=== PATIENT | male | born 1950 | race Caucasian/White ===

== ENCOUNTER 2019-04-16 10:37 | Outpatient (CLI) | payer MEDICARE, OTHER ==
--- NOTE | 2019-04-16 14:52 | MRI ---
MRI RIGHT SHOULDER WITHOUT CONTRAST: HISTORY: The patient complains of right shoulder pain with painful range of motion for a couple years. Histor y of right shoulder surgery in 2001. FINDINGS: There is moderate arthrosis of the AC joint. There is evidence of a previous rotator cuff repair. T he repair appears intact. The fibers are thin, and there is a partial undersurface tear involving th e region of the conjoined component of the supraspinatus and infraspinatus tendon, with the undersurf trista or articular site of fibers retracted by as much as 2.8 cm. The subscapularis muscle and tendon are intact. The biceps tendon lies within the bicipital groove. There is tendinosis of the intraarticular portion of the biceps tendon, and there may even be a smal l split tear present. The inferior glenohumeral ligament is intact. I do not appreciate any definitive labral findings. IMPRESSION: 1. The patient is status post rotator cuff repair. Although the repair is intact, some of the fiber s are very thin, with only some minimal residual bursal-sided fibers. In the region of the conjoined tendon, there is retraction of the articular or undersurface fibers by as much as 2.8 cm. 2. Some tendinosis changes of the biceps tendon and possible associated split tear. POS: [facility]
== END 2019-04-16 10:38 | disposition home or self-care (01) ==
LOC: BICMRI 10:37
PROVIDERS: ATTEND Orthopaedic Surgery
DX: M75.41 Impingement syndrome of right shoulder (principal); Z98.890 Other specified postprocedural states

== ENCOUNTER 2019-06-02 14:57 | Emergency (ER) | payer MEDICARE, OTHER ==
[2019-06-02 15:39] LABS: #Lymphocytes 0.3 thou/uL (1.20-3.40); #Monocytes 0.7 thou/uL (0.11-0.59); #Neutrophils 7.4 thou/uL (1.40-6.50); %Basophils 0.3 % (0.0-1.0); %Eosinophils 0.1 % (0.0-10.0); %Lymphocytes 3.8 % (21.0-51.0); %Neutrophils 87.9 % (42.0-75.0); Hemoglobin 12.9 g/dL (14.0-18.0); Mean Corpuscular HGB CONC 34.3 g/dL (32.0-36.0); Mean Corpuscular Hemoglobin 30.7 pg (27.0-31.0); Mean Corpuscular Volume 89.6 fL (78.0-98.0); Mean Platelet Volume 8.7 fL (7.4-10.4); Platelet Count 120 thou/uL (130-400); RBC Distribution Width 13.1 % (11.5-14.5); Red Blood Cell (RBC) Count 4.19 mill/uL (4.70-6.10); White Blood Cell (WBC) Count 8.4 thou/uL (4.8-10.8)
[2019-06-02 15:57] LABS: ALT (SGPT) 18 U/L (8-55); AST (SGOT) 23 U/L (5-34); Albumin 3.8 g/dL (3.4-4.8); Alkaline Phosphatase 52 U/L (40-150); Anion Gap 12 mmol/L (10-20); BUN (Urea Nitrogen) 31 mg/dL (8.4-25.7); Bilirubin, Total 0.6 mg/dL (0.2-1.2); Calc. Creatinine Clearance 0 mL/min (70-130); Calcium 8.2 mg/dL (7.8-10.44); Carbon Dioxide 24 mmol/L (23-31); Chloride 96 mmol/L (98-107); Estimated GFR-MDRD 39; Globulin 2.5 g/dL (2.4-3.5); Glucose 165 mg/dL (80-115); Potassium 3.8 mmol/L (3.5-5.1); Protein, Total 6.3 g/dL (5.8-8.1); Sodium 128 mmol/L (136-145)
[2019-06-02] MEDS ORDERED: Acetaminophen 500 MG TAB ONE (16:19)
--- NOTE | 2019-06-02 16:28 | RAD ---
PORTABLE CHEST ONE VIEW: 06/02/19 at 4:04 p.m. HISTORY: Fever. FINDINGS: Comparison is made with exam of 01/25/19. The heart size is normal. The aorta is tortuous. The lungs are expanded without focal areas of consol idation, pneumothoraces, or pleural effusions. IMPRESSION: No acute process. POS: [facility]
--- NOTE | 2019-06-02 16:49 | CT ---
CT BRAIN WITHOUT CONTRAST: 06/02/19 HISTORY: Altered mental status. FINDINGS: No evidence of infarct, hemorrhage, midline shift, or abnormal extra-axial fluid collections are seen . The ventricular size is appropriate and the basilar cisterns patent. The bony calvarium is intact. The paranasal sinuses and mastoid air cells are well aerated. IMPRESSION: No evidence of acute intracranial process. POS: [facility]
[2019-06-02 18:17] LABS: Bacteria/HPF None Seen HPF (None Seen); Bilirubin Negative (Negative); Blood, Urine Negative (Negative); Clarity Clear (Clear); Glucose, Urine (Dipstick) Normal (Negative); Leukocyte Negative Leu/uL (Negative); Nitrite Negative (Negative); Protein, Urine (Dipstick) 100 mg/dL (Neg-Trace); RBC/HPF 0-3 HPF (0-3); Squamous Epithelial None Seen HPF (0-3); Urobilinogen Normal mg/dL (Less than 2); WBC/HPF 0-3 HPF (0-3)
== END 2019-06-02 18:45 | disposition home or self-care (01) ==
LOC: ERS 14:57
DX: T67.0XXA Heatstroke and sunstroke, initial encounter (principal); E86.0 Dehydration; X30.XXXA Exposure to excessive natural heat, initial encounter
CPT/HCPCS: 36415; 70450; 71045; 80053; 81003; 81015; 84443; 85025; 87040; 87077; 87086; 87149; 93005

== ENCOUNTER 2019-06-03 12:20 | Inpatient (IN) | payer MEDICARE, OTHER ==
[2019-06-03 13:13] LABS: ALT (SGPT) 42 U/L (8-55); AST (SGOT) 55 U/L (5-34); Albumin 3.4 g/dL (3.4-4.8); Alkaline Phosphatase 49 U/L (40-150); Anion Gap 14 mmol/L (10-20); BUN (Urea Nitrogen) 22 mg/dL (8.4-25.7); Bilirubin, Total 0.5 mg/dL (0.2-1.2); CK (CPK) 187 U/L (30-200); Calc. Creatinine Clearance 0 mL/min (70-130); Calcium 7.8 mg/dL (7.8-10.44); Carbon Dioxide 21 mmol/L (23-31); Chloride 98 mmol/L (98-107); Estimated GFR-MDRD 51; Globulin 2.4 g/dL (2.4-3.5); Glucose 126 mg/dL (80-115); Potassium 3.6 mmol/L (3.5-5.1); Protein, Total 5.8 g/dL (5.8-8.1); Sodium 129 mmol/L (136-145)
[2019-06-03 13:14] LABS: #Lymphocytes 0.4 thou/uL (1.20-3.40); #Monocytes 0.6 thou/uL (0.11-0.59); #Neutrophils 5.1 thou/uL (1.40-6.50); %Basophils 0.3 % (0.0-1.0); %Eosinophils 0.1 % (0.0-10.0); %Lymphocytes 6.1 % (21.0-51.0); %Monocytes 9.9 % (0.0-10.0); %Neutrophils 83.6 % (42.0-75.0); Mean Corpuscular HGB CONC 34.7 g/dL (32.0-36.0); Mean Corpuscular Hemoglobin 31.3 pg (27.0-31.0); Mean Corpuscular Volume 90.2 fL (78.0-98.0); Platelet Count 118 thou/uL (130-400); Red Blood Cell (RBC) Count 3.84 mill/uL (4.70-6.10); White Blood Cell (WBC) Count 6.1 thou/uL (4.8-10.8)
[2019-06-03 13:16] LABS: MDiff Complete? YES; Platelet Morphology Comment Appears Decreased; Polychromasia SLIGHT = 2-3 cells (100X) (0-2/hpf)
[2019-06-03] MEDS ORDERED: Vancomycin HCl 1 GM in Sodium Chloride 0.9% 250 ML 300 ML IVPB SCH (15:00)
[2019-06-03] MEDS ORDERED: Bisacodyl 10 MG SUPP PR PRN (15:00)
[2019-06-03] MEDS ORDERED: Senokot S 8.6-50 MG TAB PO PRN (15:00)
[2019-06-03] MEDS ORDERED: Guaifenesin DM 100-10/5 ML UDCUP PO PRN (15:00)
--- NOTE | 2019-06-03 15:24 | RAD ---
Exam: Left knee 4 views: HISTORY: Bacteremia, concern for osteomyelitis FINDINGS: Left medial hemiarthroplasty. There is some bone lucency around the left femoral portion of the prost hesis, a finding that can be seen with associated loosening but also with infection. No significant abnormal joint effusion. No acute fracture or dislocation. No old studies. IMPRESSION: Some bone lucency around the medial femoral arthroplasty prosthesis, a finding that can be seen in lo osening and or infection. Consider follow-up nuclear medicine white blood cell scan for further assessment.
--- NOTE | 2019-06-03 15:26 | RAD ---
Right knee 4 views: HISTORY: Bacteremia, concern for osteomyelitis. FINDINGS: Medial right knee hemiarthroplasty changes with some indistinction of the bone density around the med ial femoral prosthesis component raising concern for possible loosening or infection. Some lateral compartment arthrosis and degenerative change. There is evidence for some prepatellar and superficial infrapatellar subcutaneous swelling. IMPRESSION: Indistinction of the bone around the medial femoral hemiarthroplasty prosthesis raise the possibility of some minimal loosening or infection. Possible small joint effusion. Minimal superficial to the patellar and infrapatellar soft tissue swelling.
[2019-06-03 15:37] LABS: INR-International Normal Ratio 1.3; Prothrombin Time 15.7 SEC (12.0-14.7)
--- NOTE | 2019-06-03 15:59 | HP ---
REASON FOR ADMISSION: Sepsis, MSSA bacteremia, and gastroenteritis. HISTORY OF PRESENTING ILLNESS: The patient gives history of having fever from last . He also developed nausea, vomiting, and watery diarrhea. He has had 4 to 5 episodes of loose watery stool till yesterday. He had a fever of 103 yesterday morning. He had come to emergency room. He was given 2 L of IV fluids and was asked to get hospitalized, but the patient said he wanted to go home and left. After receiving 2 L of IV fluid yesterday, the patient has not had any urine output up until now. He also developed fever of 102 degrees this morning. He is feeling dizzy and weak and finally came to emergency room. No complaints of any ulcers, wounds, or joint pains. No complaints of any pain in his spine. No chest pain or palpitation. No shortness of breath. Prior colonoscopies x3 were normal except for polyps. PAST MEDICAL AND SURGICAL HISTORY: Osteoarthritis, colonoscopy x3 was negative except for polyps removed. This was done by Dr. Mckay in [place]. He has had bilateral knee partial replacement, bilateral rotator cuff repair, all of which were done in [place]. He has history of testosterone deficiency and is on testosterone replacement from last six years. His urologist is Dr. Torre in [place]. CURRENT MEDICATIONS: 1. Testosterone shots once every three weeks. 2. Motrin p.r.n. ALLERGIES: NO KNOWN DRUG ALLERGIES. PERSONAL HISTORY: Does not abuse alcohol or drugs. No history of smoking. He is a retired canteen attendant. He stays alone. No children. Not . FAMILY HISTORY: Mother at the age of 43 years, she has had history of uterine cancer. Father at the age of 89 years, he had a history of CABG. CODE STATUS: Full. Power of oven press tender is his two sisters, Ms Karina Franklin and Ms. Yu Lopez. REVIEW OF SYSTEMS: CONSTITUTIONAL: Negative for weight loss or gain, ability to conduct usual activities. SKIN: Negative for rash, itching. EYES: Negative for double vision, pain. ENT/MOUTH: Negative for nose bleeding, neck stiffness, pain, tenderness. CARDIOVASCULAR: Negative for palpitations, dyspnea on exertion, orthopnea. RESPIRATORY: Negative for shortness of breath, wheezing, cough, hemoptysis, fever or night sweats. GASTROINTESTINAL: Negative for poor appetite, abdominal pain, heartburn, nausea , vomiting, constipation, or diarrhea. GENITOURINARY: Negative for urgency, frequency, dysuria, nocturia. MUSCULOSKELETAL: Negative for pain, swelling. NEUROLOGIC/PSYCHIATRIC: Negative for anxiety, depression. ALLERGY/IMMUNOLOGIC: Negative for skin rash, bleeding tendency. PHYSICAL EXAMINATION: GENERAL: The patient is a 69-year-old male, who is currently not in any acute distress. VITAL SIGNS: Blood pressure 118/70, pulse 64 per minute, respiratory rate 16 per minute, temperature 97.9 degrees Fahrenheit, and saturating 97% on room air. NECK: Supple. No elevated JVD. HEENT: Eyes; extraocular muscles intact. Pupils reacting to light. Oral cavity, mucous membranes are dry. No exudates or congestion. HEART: S1 and S2 heard. Regular rhythm. No murmur. RESPIRATORY SYSTEM: Air entry 1+ bilateral. Scattered rhonchi plus no rales or wheezes. ABDOMEN: Soft. Bowel sounds heard. No tenderness, rigidity, or guarding. EXTREMITIES: No peripheral edema or calf tenderness. VASCULAR SYSTEM: Peripheral pulses to 2+ bilateral. No ischemic ulcerations or gangrene. CENTRAL NERVOUS SYSTEM: No gross focal deficits noted. The patient is alert, awake, and oriented well. PSYCHIATRIC SYSTEM: The patient's mood is euthymic. No hallucinations or delusions. LABORATORY DATA: H and H 12 and 34, platelet count 118, 83% neutrophils, white count of 6.1, and MCV is 90. Sodium 129, bicarb is 21, BUN 22, creatinine 1.3. Yesterday, BUN and creatinine were 31 and 1.7. TSH 0.94. Albumin is 3.4. CK level is 187. Liver enzymes were AST 55, ALT 42, alkaline phosphatase 49, and total bilirubin 0.5. Blood cultures drawn yesterday / are growing MSSA. Chest x- ray done shows no acute cardiopulmonary abnormalities. This was done yesterday. CT brain done yesterday shows no acute intracranial process. EKG done shows normal sinus rhythm at 65 beats per minute, LA interval is 156 millisecond, QRS is 86 millisecond, and corrected QT 409 milliseconds. CLINICAL IMPRESSION AND PLAN: The patient will be admitted to medical floor for sepsis, methicillin-susceptible Staphylococcus aureus bacteremia, gastroenteritis, and acute kidney injury, currently uremic from yesterday with no urine output. He has received a liter of IV fluids in the ER and 1 g of vancomycin. We will continue him on lactated Ringer's at 100 mL/hour. We will also add Zosyn to his vancomycin. We will obtain echo with 2D Doppler for LV function. The patient has had no current focus of methicillin-susceptible Staphylococcus aureus bacteremia except gastrointestinal tract. We will obtain CT of the abdomen and pelvis without contrast in view of the patient not having passed any urine with the elevated creatinine yesterday and mild metabolic acidosis this afternoon. Echo with 2D Doppler to rule out vegetation and both knee x-rays. If needed, we will obtain further imaging, stool studies and urine cultures. We will consult Dr. Pettit for Infectious Disease and Dr. Rishi Jules for Nephrology. We will continue to closely monitor him on medical floor. Job ID: [id number] MTD[facility]
[2019-06-03] MEDS: Acetaminophen 325 MG TAB PO PRN (17:44)
[2019-06-03 18:09] VITALS: BMI 31.8
[2019-06-03] MEDS: Lactated Ringer's 1,000 ML IV SCH (18:54)
--- NOTE | 2019-06-03 20:10 | CT ---
CT ABDOMEN AND PELVIS WITHOUT IV CONTRAST: History: 69-year-old male with dehydration, fever. FINDINGS: Absence of IV contrast reduces the sensitivity of the exam particularly for evaluation of solid organ s. Oral contrast was administered. The lung bases are clear. There are calcified granulomas in the liver and spleen. No calcified gallst ones are seen. No free air or free fluid is noted in the abdomen or pelvis. The small bowel loops are not abnormally dilated. Abnormal appearing appendix is present. There is a punctate calculus in the right kidney. No calculi seen in the left kidney, either ureter o r the urinary bladder. No hydroureteronephrosis is seen on either side. The urinary bladder is well d istended. There is no evidence of aneurysmal dilatation of the abdominal aorta. There are degenerative changes in the spine. IMPRESSION: 1. Liver and spleen granulomas. 2. Punctate nonobstructing right renal calculus. 3. No evidence of appendicitis. POS: [facility]
[2019-06-03] MEDS: Piperacillin/Tazobactam 3.375 GM in Sodium Chloride 0.9% 100 ML IVPB SCH (21:20)
[2019-06-04] MEDS: Lactated Ringer's 1,000 ML IV SCH ×2 (05:14→11:13)
[2019-06-04] MEDS: Piperacillin/Tazobactam 3.375 GM in Sodium Chloride 0.9% 100 ML IVPB SCH ×2 (05:15→14:07)
[2019-06-04] MEDS: Acetaminophen 325 MG TAB PO PRN ×3 (05:19→23:04)
[2019-06-04 06:36] LABS: Hemoglobin 12.6 g/dL (14.0-18.0); Mean Corpuscular HGB CONC 35.3 g/dL (32.0-36.0); Mean Corpuscular Hemoglobin 31.9 pg (27.0-31.0); Mean Corpuscular Volume 90.5 fL (78.0-98.0); Mean Platelet Volume 8.9 fL (7.4-10.4); Platelet Count 123 thou/uL (130-400); RBC Distribution Width 13.1 % (11.5-14.5); Red Blood Cell (RBC) Count 3.95 mill/uL (4.70-6.10); White Blood Cell (WBC) Count 5.2 thou/uL (4.8-10.8)
[2019-06-04 06:48] LABS: Albumin 3.3 g/dL (3.4-4.8); Anion Gap 13 mmol/L (10-20); BUN (Urea Nitrogen) 16 mg/dL (8.4-25.7); BUN/Creatinine Ratio 13.45; Calc. Creatinine Clearance 92 mL/min (70-130); Calcium 7.9 mg/dL (7.8-10.44); Carbon Dioxide 23 mmol/L (23-31); Chloride 100 mmol/L (98-107); Estimated GFR-MDRD 61; Glucose 99 mg/dL (80-115); Potassium 3.8 mmol/L (3.5-5.1); Sodium 132 mmol/L (136-145)
[2019-06-04 06:52] LABS: Phosphorus 1.5 mg/dL (2.3-4.7)
[2019-06-04 06:54] LABS: Band 23 % (5-11); Lymphocytes 4 % (21-51); MDiff Complete? YES; Monocytes 17 % (0-10); Neutrophil 56 % (42-75)
[2019-06-04] MEDS: PHOS-NAK 1 PKT PACK PO SCH ×2 (08:00→19:53)
[2019-06-04] MEDS: Enoxaparin Sodium 30 MG/0.3 ML SYRINGE SC SCH (08:03)
--- NOTE | 2019-06-04 13:56 | PDOC.HOSPP ---
- Subjective Encounter Date: 06/04/19 Encounter Time: 10:00 Subjective: no chest pain, sob, palp or aches/pains is amb in room - Objective Vital Signs & Weight: Vital Signs (12 hours) Temp Pulse Resp BP BP Pulse Ox 06/04/19 11:31 99.4 F 66 18 115/63 97 06/04/19 08:00 97 06/04/19 07:45 98.8 F 60 20 113/67 97 06/04/19 05:00 100.2 F H 76 18 129/76 97 Weight Weight 241 lb 11.2 oz Result Diagrams: 06/04/19 05:27 06/04/19 05:27 Hospitalist ROS - Medication Medications: Active Medications Generic Name Dose Route Start Last Admin Trade Name Freq PRN Reason Stop Dose Admin Acetaminophen 650 mg 06/03/19 15:00 06/04/19 05:19 Tylenol PO 650 mg Q4H PRN Administration Headache/Fever/Mild Pain (1-3) Enoxaparin Sodium 30 mg 06/04/19 09:00 06/04/19 08:03 Lovenox SC 30 mg 0900 STEPHENIE Administration Piperacillin Sod/Tazobactam 100 mls @ 200 mls/hr 06/03/19 22:00 06/04/19 05: 15 Sod 3.375 gm/ Sodium Chloride IVPB 100 mls Q8HR STEPHENIE Administration Miscellaneous Medication 1 pkt 06/04/19 09:00 06/04/19 08:00 Phos-Nak PO 06/05/19 21:01 1 pkt BID STEPHENIE Administration - Exam General Appearance: NAD, awake alert Eye: PERRL, anicteric sclera ENT: no oropharyngeal lesions, moist mucosa Neck: supple, no JVD Heart: RRR, no murmur Respiratory: no wheezes, no rales Gastrointestinal: soft, non-tender, normal bowel sounds Extremities: no cyanosis, no edema Skin: normal turgor, no rashes Neurological: CN's grossly intact, no focal deficits Psychiatric: normal affect, A&O x 3 Hosp A/P (1) Sepsis Code(s): A41.9 - SEPSIS, UNSPECIFIED ORGANISM Status: Acute Qualifiers: Sepsis type: methicillin susceptible Staphylococcus aureus Severe sepsis shock status: without septic shock (2) MSSA bacteremia Code(s): R78.81 - BACTEREMIA Status: Acute (3) MEÑO (acute kidney injury) Code(s): N17.9 - ACUTE KIDNEY FAILURE, UNSPECIFIED Status: Resolved (4) Gastroenteritis Code(s): K52.9 - NONINFECTIVE GASTROENTERITIS AND COLITIS, UNSPECIFIED Status : Acute - Plan is on vanc and zosyn await echo results stool studies are -ve so far, diarrhea is resolved has been making urine today, wants his iv fluids to be discontinued await full culture results, adv
--- NOTE | 2019-06-04 14:33 | CON ---
DATE OF CONSULTATION: REASON FOR CONSULTATION: Acute kidney injury and anuria. IMPRESSION: 1. Anuric acute kidney injury, this is likely hemodynamically mediated in the context of dehydration compounded by the excessive use of nonsteroidal anti-inflammatory drugs. 2. 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 3. MSSA bacteremia likely contributing to acute kidney injury cytokine mediated injury. PLAN: 1. Aggressive IV fluid resuscitation strongly recommended. 2. My main concern is this kidney problem has to do with significant NSAID nephropathy/interstitial nephritis given the fact that this patient takes about 1600 mg of Motrin on daily basis and also the patient took four tablets of 325 mg of aspirin and also exposing this patient to significant risk of NSAID nephropathy, now compounded by cytokine mediated injury in the context of bacteremia as well as intravascular depletion/prerenal acute kidney injury. 3. Avoid any potentially nephrotoxic agents. 4. Counseled this patient on the need to back off from NSAID. 5. Further management will be dependent on the clinical course. If the patient still does not make urine after significant amount of IV fluid resuscitation, we will recommend either bladder scanning or renal imaging. HISTORY OF PRESENT ILLNESS: History is that of a 69-year-old gentleman, who presented here with nausea, vomiting, and diarrhea of couple of days duration, was rehydrated with about 2 L of urine and the patient had to represent yesterday given the fact that he had not made much of any urine. The patient on presentation was noted with slight elevation in creatinine up to 1.7 from previous creatinine record of above 1.4. The patient also noted with significant blood culture grew out MSSA. The patient has not been making urine, decision has been taken to involve Renal in the management of this disease. PAST MEDICAL HISTORY: Osteoarthritis, many years NSAID usage, bilateral knee replacement. MEDICATIONS: Reviewed and documented on [employer]. ALLERGIES: NO KNOWN DRUG ALLERGIES. SOCIAL HISTORY: No alcohol. No tobacco. No illicit drug use. FAMILY HISTORY: No family history of kidney disease. REVIEW OF SYSTEMS: As documented in the body of history. All the other systems were reviewed and found not to be significantly related to present illness. PHYSICAL EXAMINATION: GENERAL: The patient seems to be ill looking very nice gentleman. VITAL SIGNS: Hemodynamically stable with blood pressure of 119/60, respiratory rate of 18, O2 saturations of 98% HEENT: Unremarkable. CARDIOVASCULAR SYSTEM: First and second heart sounds were heard. RESPIRATORY SYSTEM: Clear to auscultation. DIGESTIVE SYSTEM: Revealed a benign abdomen. Positive bowel sounds. EXTREMITIES: No peripheral edema. SKIN: No new gross rash. LYMPHATICS: No peripheral lymphadenopathy. SUMMARY: A 69-year-old gentleman, who presented here not making much of any urine now noted with MSSA bacteremia and elevation in creatinine. Thank you for this consultation. We will follow with you. Job ID: [id number]
[2019-06-04] MEDS ORDERED: CEFAZOLIN 2 GM in Sodium Chloride 0.9% 100 ML IVPB SCH (15:00)
[2019-06-04 15:38] LABS: HIV (1/2) Antibody/Antigen Non-Reactive (NonReactive); Hep C IgG Ab Non-Reactive (NonReactive); Hep C Index 0.07 S/CO (0-0.79)
--- NOTE | 2019-06-04 19:10 | CON ---
DATE OF CONSULTATION: 06/04/2019 REASON FOR CONSULTATION: Bacteremia. HISTORY OF PRESENT ILLNESS: A 69-year-old fairly healthy person who is retired in an area close to [place], used to live in [place] most of his life and did not have much problems in the past other than joint surgeries mostly in the knees, developed sudden onset of nausea, vomiting, watery diarrhea with fever. Came initially to the emergency room and had a temperature of 103. After fluids and initial evaluation, he asked to go home and had to come back with recurrence of symptoms. He had evaluation. Blood cultures turn positive for methicillin-sensitive Staph aureus. Denies headaches. No visual symptoms, sore throat, odynophagia, or dysphagia. Has some dental issues, but that was many years ago. No neck pain. No back pain. No cough, sputum production, or chest pain. No abdominal pain or diarrhea, and had some issues with his prostate and an episode of epididymitis in the past. No neurological symptoms. PAST MEDICAL HISTORY: Osteoarthritis, colonoscopy except for polyps, epidermidis, bilateral partial knee replacements, rotator cuff repair. He takes testosterone replacement therapy. ALLERGIES: NONE. MEDICATIONS: Cefazolin, p.r.n. medications, and testosterone. SOCIAL HISTORY: Retired aquatics lifeguard. Lived his life in [place]. Never smoker. No alcoholic beverage use. Never . FAMILY HISTORY: Uterine cancer, bypass graft surgery. PHYSICAL EXAMINATION: VITAL SIGNS: T-max 102.7, blood pressure 120/60, pulse 69, respirations 18, and O2 saturation 96. SKIN: Normal. Peripheral IV access. No Phelps catheter. No lymphadenopathy. HEENT: Ocular movements conjugate. Sclerae white. Pupils are equal. Oral cavity normal. NECK: Supple. No spine tenderness. LUNGS: Clear to auscultation and percussion. S1 and S2. Regular rate. No S3 or S4. No murmurs. ABDOMEN: Soft, not distended or tender. No ascites. No bladder distention. No joint inflammatory activity. NEUROLOGIC: Nonfocal including cognitive function. LABORATORY DATA: White cell count 6.1 and 5.2, hemoglobin 12, platelets 118 and 123, 82% neutrophils. INR 1.3. Sodium 129, creatinine 1.38 and 1.19. AST 55, ALT normal, alkaline phosphatase normal. CK 187. CRP 14.59. Albumin 3.3. HIV nonreactive. Hepatitis C nonreactive. C difficile negative. Campylobacter antigen assay negative. Blood cultures from June 02, MSSA. Blood cultures from June 03, still pending. DIAGNOSTIC DATA: There is a pending echocardiogram. Abdomen and pelvis CT with liver and spleen granulomas. No other abnormalities noted. There is a chest x- ray from June 02, which was normal. ASSESSMENT: Not very remarkable past medical history, now with methicillin-susceptible Staphylococcus aureus bacteremia of unknown primary site , endocarditis until proven otherwise. If transthoracic echo was normal, then we will order a ALMA. Switch him to cefazolin. We will need a PICC line and protracted antimicrobial therapy administration either 4 or 6 weeks depending on the findings in the echocardiogram. We will need to continue monitoring his spine and knees particularly. Job ID: [id number] [facility]
--- NOTE | 2019-06-04 20:27 | PRG ---
DATE OF SERVICE: 06/04/2019 SUBJECTIVE: The patient was seen and examined with no new complaints. Noted to be hemodynamically stable. OBJECTIVE: HEENT: Unremarkable. CARDIOVASCULAR SYSTEM: First and second heart sounds were heard. RESPIRATORY SYSTEM: Clear to auscultation. DIGESTIVE SYSTEM: Revealed a benign abdomen. Positive bowel sounds. EXTREMITIES: No peripheral edema. SKIN: No new gross rash. LYMPHATICS: No peripheral lymphadenopathy. IMPRESSION: Acute kidney injury, which is much improved. PLAN: 1. We will continue with current renal supportive measures. 2. Renally dose all medications and avoid potentially nephrotoxic agents. Job ID: [id number]
[2019-06-04] MEDS: CEFAZOLIN 2 GM in Premix Bag 1 BAG IVPB SCH (23:00)
[2019-06-05] MEDS: CEFAZOLIN 2 GM in Premix Bag 1 BAG IVPB SCH ×3 (06:24→22:33)
[2019-06-05] MEDS: Acetaminophen 325 MG TAB PO PRN ×2 (06:29→13:59)
[2019-06-05 07:05] LABS: Albumin 3.2 g/dL (3.4-4.8); Anion Gap 10 mmol/L (10-20); BUN (Urea Nitrogen) 12 mg/dL (8.4-25.7); Calc. Creatinine Clearance 91 mL/min (70-130); Calcium 7.9 mg/dL (7.8-10.44); Carbon Dioxide 27 mmol/L (23-31); Chloride 98 mmol/L (98-107); Estimated GFR-MDRD 60; Glucose 95 mg/dL (80-115); Phosphorus 2.2 mg/dL (2.3-4.7); Potassium 3.3 mmol/L (3.5-5.1); Sodium 132 mmol/L (136-145)
[2019-06-05] MEDS: Enoxaparin Sodium 30 MG/0.3 ML SYRINGE SC SCH (07:49)
[2019-06-05] MEDS: PHOS-NAK 1 PKT PACK PO SCH ×2 (07:49→20:25)
--- NOTE | 2019-06-05 12:27 | PDOC.HOSPP ---
- Subjective Encounter Date: 06/05/19 Encounter Time: 10:15 Subjective: no chest pain or palp. No aches or pains anywhere feels better is passing urine with no trouble - Objective Vital Signs & Weight: Vital Signs (12 hours) Temp Pulse Resp BP Pulse Ox 06/05/19 11:35 99.6 F 68 18 160/77 H 97 06/05/19 07:29 98.9 F 60 18 136/84 98 06/05/19 06:00 100.7 F H Weight Weight 241 lb 11.2 oz I&O: 06/04/19 06/05/19 06/06/19 06:59 06:59 06:59 Intake Total 3310 Balance 3310 Result Diagrams: 06/04/19 05:27 06/05/19 05:38 Hospitalist ROS - Medication Medications: Active Medications Generic Name Dose Route Start Last Admin Trade Name Freq PRN Reason Stop Dose Admin Acetaminophen 650 mg 06/03/19 15:00 06/05/19 06:29 Tylenol PO 650 mg Q4H PRN Administration Headache/Fever/Mild Pain (1-3) Enoxaparin Sodium 30 mg 06/04/19 09:00 06/05/19 07:49 Lovenox SC 30 mg 0900 STEPHENIE Administration Cefazolin Sodium/Dextrose 2 gm 50 mls @ 100 mls/hr 06/04/19 23:00 06/05/19 06 :24 / Device IVPB 50 mls 0700,1500,2300 STEPHENIE Administration Miscellaneous Medication 1 pkt 06/04/19 09:00 06/05/19 07:49 Phos-Nak PO 06/05/19 21:01 1 pkt BID STEPHNEIE Administration - Exam General Appearance: NAD, awake alert Eye: PERRL, anicteric sclera ENT: no oropharyngeal lesions, moist mucosa Neck: supple, no JVD Heart: RRR, no murmur Respiratory: no wheezes, no rales Gastrointestinal: soft, non-tender, non-distended, normal bowel sounds Extremities: no cyanosis, no edema Neurological: CN's grossly intact, no focal deficits Psychiatric: normal affect, A&O x 3 Hosp A/P (1) Sepsis Code(s): A41.9 - SEPSIS, UNSPECIFIED ORGANISM Status: Acute Qualifiers: Sepsis type: methicillin susceptible Staphylococcus aureus Severe sepsis shock status: without septic shock (2) MSSA bacteremia Code(s): R78.81 - BACTEREMIA Status: Acute (3) MEÑO (acute kidney injury) Code(s): N17.9 - ACUTE KIDNEY FAILURE, UNSPECIFIED Status: Resolved (4) Gastroenteritis Code(s): K52.9 - NONINFECTIVE GASTROENTERITIS AND COLITIS, UNSPECIFIED Status : Acute - Plan is on ancef await echo to be done, if -ve ALMA, picc line stool studies are -ve so far, diarrhea is resolved has been making urine well await full culture results to ambulate as tolerated
[2019-06-06 06:03] LABS: Albumin 3.2 g/dL (3.4-4.8); Anion Gap 12 mmol/L (10-20); BUN (Urea Nitrogen) 10 mg/dL (8.4-25.7); BUN/Creatinine Ratio 8.62; Calc. Creatinine Clearance 95 mL/min (70-130); Carbon Dioxide 28 mmol/L (23-31); Chloride 96 mmol/L (98-107); Estimated GFR-MDRD 63; Glucose 98 mg/dL (80-115); Potassium 3.1 mmol/L (3.5-5.1); Sodium 133 mmol/L (136-145)
[2019-06-06] MEDS: CEFAZOLIN 2 GM in Premix Bag 1 BAG IVPB SCH ×3 (06:18→22:15)
[2019-06-06] MEDS: Lidocaine 5% Patch TD SCH (06:31)
[2019-06-06] MEDS ORDERED: Lidocaine 5% Patch TD SCH (09:00)
[2019-06-06] MEDS: Enoxaparin Sodium 30 MG/0.3 ML SYRINGE SC SCH (10:54)
--- NOTE | 2019-06-06 12:43 | PDOC.HOSPP ---
- Subjective Encounter Date: 06/06/19 Encounter Time: 09:15 Subjective: is sitting in chair, no sob or pain anywhere is npo for ALMA - Objective Vital Signs & Weight: Vital Signs (12 hours) Temp Pulse Resp BP BP Pulse Ox 06/06/19 11:29 99.3 F 72 18 147/92 H 93 L 06/06/19 08:00 97 06/06/19 07:49 99.8 F H 61 16 146/75 H 97 06/06/19 04:38 99.5 F 69 18 167/73 H 96 Weight Weight 241 lb 11.2 oz I&O: 06/05/19 06/06/19 06/07/19 06:59 06:59 06:59 Intake Total 3310 4500 Output Total 4100 Balance 3310 400 Result Diagrams: 06/04/19 05:27 06/06/19 04:39 Hospitalist ROS - Medication Medications: Active Medications Generic Name Dose Route Start Last Admin Trade Name Freq PRN Reason Stop Dose Admin Acetaminophen 650 mg 06/03/19 15:00 06/05/19 13:59 Tylenol PO 650 mg Q4H PRN Administration Headache/Fever/Mild Pain (1-3) Enoxaparin Sodium 30 mg 06/04/19 09:00 06/06/19 10:54 Lovenox SC Not Given 0900 [facility]END[facility] TO [facility] Cefazolin Sodium/Dextrose 2 gm 50 mls @ 100 mls/hr 06/04/19 23:00 06/06/19 06 :18 / Device IVPB 50 mls 0700,1500,2300 STEPHENIE Administration Lidocaine 1 patch 06/06/19 07:00 06/06/19 06:31 Lidoderm 5% Patch TD 1 patch 0700 STEPHENIE Administration - Exam General Appearance: NAD, awake alert Eye: PERRL, anicteric sclera ENT: no oropharyngeal lesions, moist mucosa Neck: supple, no JVD Heart: RRR, no murmur Respiratory: no wheezes, no rales, no ronchi Gastrointestinal: soft, non-tender, normal bowel sounds Extremities: no cyanosis, no edema Neurological: CN's grossly intact, no focal deficits Psychiatric: normal affect, A&O x 3 Hosp A/P (1) Sepsis Code(s): A41.9 - SEPSIS, UNSPECIFIED ORGANISM Status: Acute Qualifiers: Sepsis type: methicillin susceptible Staphylococcus aureus Severe sepsis shock status: without septic shock (2) MSSA bacteremia Code(s): R78.81 - BACTEREMIA Status: Acute (3) MEÑO (acute kidney injury) Code(s): N17.9 - ACUTE KIDNEY FAILURE, UNSPECIFIED Status: Resolved (4) Gastroenteritis Code(s): K52.9 - NONINFECTIVE GASTROENTERITIS AND COLITIS, UNSPECIFIED Status : Resolved - Plan is on ancef, no obvious source of MSSA yet transthoracic echo is -ve for veg, ALMA today. PICC line per adv, mssa is sensitive to most antibiotics including oral. stool studies are -ve so far, diarrhea is resolved to ambulate as tolerated
[2019-06-06] MEDS ORDERED: PROPOFOL 40 ML ONE (13:23)
[2019-06-06] MEDS ORDERED: Lidocaine Patch Removal 1 EACH TOP SCH ×2 (19:00→21:00)
[2019-06-06] MEDS: Acetaminophen 325 MG TAB PO PRN (20:32)
--- NOTE | 2019-06-06 21:33 | ECHO ---
DATE OF PROCEDURE: 06/06/19 INDICATION FOR PROCEDURE: This is a 69-year-old gentleman with continued fevers of uncertain etiology. He was advised to underg o a transesophageal echocardiogram to rule out evidence of intracardiac thrombi or vegetations. He was taken to the recovery area where he underwent short acting propofol anesthesia and the transes ophageal probe was easily passed down the distal esophagus. IMPRESSION: 1. Normal left ventricular systolic function. Ejection fraction 55-60%. 2. Trace to mild mitral valve regurgitation. 3. Mild tricuspid valve regurgitation. 4. No evidence of vegetations noted in the mitral valve, aortic valve, or tricuspid valve. 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 6. There were no difficulties or complications encountered. The patient tolerated the procedure well.
[2019-06-07] MEDS: Lidocaine 5% Patch TD SCH (06:16)
[2019-06-07] MEDS: CEFAZOLIN 2 GM in Premix Bag 1 BAG IVPB SCH ×2 (06:18→15:05)
[2019-06-07 06:31] LABS: Albumin 3.1 g/dL (3.4-4.8); Anion Gap 14 mmol/L (10-20); BUN (Urea Nitrogen) 11 mg/dL (8.4-25.7); BUN/Creatinine Ratio 9.65; Calc. Creatinine Clearance 96 mL/min (70-130); Calcium 8.5 mg/dL (7.8-10.44); Carbon Dioxide 31 mmol/L (23-31); Chloride 100 mmol/L (98-107); Estimated GFR-MDRD 64; Glucose 102 mg/dL (80-115); Potassium 3.4 mmol/L (3.5-5.1); Sodium 142 mmol/L (136-145)
[2019-06-07] MEDS: Enoxaparin Sodium 30 MG/0.3 ML SYRINGE SC SCH (08:52)
--- NOTE | 2019-06-07 12:51 | PDOC.HOSPP ---
- Subjective Encounter Date: 06/07/19 Encounter Time: 09:00 Subjective: is ambulating in hallway no aches or pain or sob - Objective Vital Signs & Weight: Vital Signs (12 hours) Temp Pulse Resp BP BP Pulse Ox 06/07/19 08:00 97 06/07/19 07:57 98.2 F 67 16 154/82 H 97 06/07/19 04:00 98.4 F 56 L 16 131/70 96 Weight Weight 241 lb 11.2 oz I&O: 06/06/19 06/07/19 06/08/19 06:59 06:59 06:59 Intake Total 4500 1300 240 Output Total 4100 3950 Balance 400 -2650 240 Result Diagrams: 06/04/19 05:27 06/07/19 04:30 Hospitalist ROS - Medication Medications: Active Medications Generic Name Dose Route Start Last Admin Trade Name Freq PRN Reason Stop Dose Admin Acetaminophen 650 mg 06/03/19 15:00 06/06/19 20:32 Tylenol PO 650 mg Q4H PRN Administration Headache/Fever/Mild Pain (1-3) Enoxaparin Sodium 30 mg 06/04/19 09:00 06/07/19 08:52 Lovenox SC 30 mg 0900 STEPHENIE Administration Cefazolin Sodium/Dextrose 2 gm 50 mls @ 100 mls/hr 06/04/19 23:00 06/07/19 06 :18 / Device IVPB 50 mls 0700,1500,2300 STEPHENIE Administration Lidocaine 1 patch 06/06/19 07:00 06/07/19 06:16 Lidoderm 5% Patch TD 1 patch 0700 STEPHENIE Administration Miscellaneous Medication 1 each 06/06/19 19:00 06/06/19 19:27 Lidocaine Patch Removal TOP Not Given 1900 STEPHENIE - Exam General Appearance: NAD, awake alert Eye: PERRL, anicteric sclera ENT: no oropharyngeal lesions, moist mucosa Neck: supple, no JVD Heart: RRR, no murmur Respiratory: no wheezes, no rales Gastrointestinal: soft, non-tender, non-distended, normal bowel sounds Extremities: no cyanosis, no edema Neurological: CN's grossly intact, no focal deficits Psychiatric: normal affect, A&O x 3 Hosp A/P (1) Sepsis Code(s): A41.9 - SEPSIS, UNSPECIFIED ORGANISM Status: Acute Qualifiers: Sepsis type: methicillin susceptible Staphylococcus aureus Severe sepsis shock status: without septic shock (2) MSSA bacteremia Code(s): R78.81 - BACTEREMIA Status: Acute (3) MEÑO (acute kidney injury) Code(s): N17.9 - ACUTE KIDNEY FAILURE, UNSPECIFIED Status: Resolved (4) Gastroenteritis Code(s): K52.9 - NONINFECTIVE GASTROENTERITIS AND COLITIS, UNSPECIFIED Status : Resolved - Plan ancef x 4 weeks, d/w , no obvious source of MSSA transthoracic and transesophageal echo is -ve for veg PICC line per stool studies are -ve so far, diarrhea is resolved to ambulate as tolerated dc plan home once iv antibiotics and picc line is ready
--- NOTE | 2019-06-07 14:45 | SPC ---
PICC PLACEMENT ULTRASOUND-GUIDED VENOUS ACCESS: (Peripherally inserted central catheter) DATE: 06/07/2019 HISTORY: 69-year-old male with MRSA bacteremia TECHNIQUE: Catheter caliber: 5 Tristanian Catheter trim length:49 cm Catheter lumen number:single Catheter tip location:upper portion of right atrium Vein accessed:left basilic Total fluoroscopy time: 0.5 min. Dose area product: 2297 mGy*cm^2 Signed, informed consent was obtained. A tourniquet was applied at the proximal aspect of the arm. Th e arm was prepped and draped in the usual sterile fashion. A 25-gauge needle was used to applied buffered lidocaine superficially. The vein was punctured with a 21-gauge micropuncture needle under u ltrasound guidance. A 0.018 inch guidewire was advanced through the micropuncture needle and into the vein. Under fluoroscopic guidance, the guidewire was advanced to the superior vena cava. The PICC was flushed and trimmed to the appropriate length. The micropuncture needle was exchanged over the guidewire for a 5 Tristanian peel-away dilator sheath. The dilator was exchanged over the guidewire for t he PICC, which was then further advanced under fluoroscopy. The sheath and guidewire were removed. The PICC was flushed again and secured in place at the arm after adjustment of tip position. The susana ent tolerated the procedure well. There was no complication. IMPRESSION: Successful placement of PICC (peripherally inserted central catheter).
--- NOTE | 2019-06-07 14:48 | PQF ---
DATE: 06-07-19 ATTN: DR. LAXMI RUIZ Please exercise your independent, professional judgment in responding to the clarification form. Clinical indicators are provided on the bottom of this form for your review Please check appropriate box(s): [ x ] Hyponatremia please specify etiology, if known __due to dehydration_ [ ] Insignificant Lab Values [ ] Other diagnosis [ ] Unable to determine In addition, please specify: Present on Admission (POA): [ x ] Yes [ ] No [ ] Unable to determine CLINICAL INDICATORS - SIGNS / SYMPTOMS / LABS SODIUM: 06-03-19: 129 06-04-19: 132 06-05-19: 132 06-06-19: 133 ER NOTES 06-03-19: DEHYDRATION, UNSTEADINESS, DIFFICULTY WORD FINDING ; ER DX: MRSA BACTEREMIA, DEHYDRATION H&P 06-03-19: DEVELOPED NAUSEA, VOMITING, AND WATERY DIARRHEA, FEVER RISK FACTORS: H&P 06-03-19: DEVELOPED NAUSEA, VOMITING, AND WATERY DIARRHEA, FEVER ER NOTES 06-03-19: DEHYDRATION, UNSTEADINESS, DIFFICULTY WORD FINDING ; ER DX: MRSA BACTEREMIA, DEHYDRATION TREATMENTS: H&P 06-03-19: HE HAS RECEIVED A LITER OF IV FLUIDS IN THE ER, WE WILL CONTINUE HIM ON LR AT 100 ML/HR (This form is maintained as a part of the permanent medical record) 2014 [employer] All Rights Reserved ANDREE [email or web address] Office: [phone] [facility]
[2019-06-07 15:23] VITALS: BP 142/71; TEMP 98.6
--- NOTE | 2019-06-07 15:42 | DIS ---
DATE OF ADMISSION: 06/03/2019 DATE OF DISCHARGE: 06/07/2019 PRIMARY CARE PHYSICIAN: Skylar Rush MD DISCHARGE DISPOSITION: Home. PRIMARY DISCHARGE DIAGNOSES: Methicillin-susceptible Staphylococcus aureus bacteremia from unknown source; acute kidney injury with hyponatremia on arrival, resolved; moderate dehydration on arrival, resolved; and initial gastroenteritis on arrival, resolved. PROCEDURES DONE DURING HOSPITALIZATION: Blood cultures 2/2 grew Staphylococcus aureus, sensitive to all antibiotics except Zosyn and amoxicillin. Repeat cultures drawn on 06/03/2019, have not grown any organism. Stool for Clostridium difficile, Campylobacter, and Shiga toxin were all negative. White count of 5, H and H 12 and 35, platelet count 123 with 56% neutrophils. BUN 11, creatinine 1.1. CRP was 14.5. Initial BUN and creatinine were 31 and 1.7 with sodium of 128 on arrival. Discharge sodium 142. HIV 1 and 2 antigen, negative. Hepatitis C antibody, nonreactive. Transthoracic echo showed ejection fraction of 50% to 55%, [id number] mitral regurgitation. No obvious thrombus or vegetation was seen. Transesophageal echo done on 06/06/2019, showed ejection fraction of 55% to 60%, mild mitral valve regurgitation, mild tricuspid valve regurgitation. No evidence of vegetations noted on the mitral valve, aortic valve, or tricuspid valve. 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 Ribera. A PICC line was placed on 06/07/2019, by Interventional Radiology. DISCHARGE MEDICATIONS: 1. Ancef 2 g 3 times daily for a total of 4 weeks, which will be arranged by Dr. Pettit' office. 2. Lidocaine transdermal patch once daily. ALLERGIES: NO KNOWN DRUG ALLERGIES. INPATIENT CONSULT: Dr. Pettit for Infectious Disease. DISCHARGE PLAN: The patient will follow up with Dr. Pettit tomorrow, and he needs to follow up with his primary care physician in 1 week. BRIEF COURSE DURING HOSPITALIZATION: The patient initially got admitted on the , with complaints of fever, nausea, vomiting, and watery diarrhea. He had a fever of 103 and had come to ER on the . He was told to get hospitalized for sepsis, but the patient refused and went home. Blood cultures obtained on the , grew MSSA bacteremia 2/2. Repeat culture on the of this month when he returned has not grown any organism. Multiple workups were done to define a focus for MSSA bacteremia, but it is unclear as of now. He had echo, transthoracic and transesophageal both, which had not revealed any vegetation or thrombus. He has had abdominal and pelvic CAT scan along with both knee x-rays done and a chest x-ray as well. None of which had revealed any source of infection. He is hemodynamically stable except for off and on occasional fever of 100 degrees. He is ambulating in the hallway, eating well, and is wanting to go home. His antibiotics have been arranged via Dr. Pettit' office. He needs to continue this for [address] Pettit' advice. Please see a [id number] documentation for the day of discharge on [facility]. Job ID: [id number]
--- NOTE | 2019-06-08 06:15 | PRG ---
DATE OF SERVICE: 06/08/2019 SUBJECTIVE: The patient noted with the following vital signs. OBJECTIVE: VITAL SIGNS: Afebrile, temperature 98.4, pulse 56, respiratory rate of 16, O2 saturation 96%, and blood pressure of 131/70. HEENT: Unremarkable. CARDIOVASCULAR: First and second heart sounds were heard. RESPIRATORY: Clear to auscultation. DIGESTIVE: Revealed a benign abdomen. Positive bowel sounds. EXTREMITIES: No peripheral edema. SKIN: No new gross rash. LYMPHATICS: No peripheral lymphadenopathy. IMPRESSION: Acute on chronic kidney disease, which seems to have improved. PLAN: We will continue with current renal supportive measures. We counseled the patient on the need to avoid nonsteroidal antiinflammatory drugs, especially excessive use of this class of medication. Job ID: [id number]
--- NOTE | 2019-06-08 06:48 | PRG ---
DATE OF SERVICE: 06/07/2019 OBJECTIVE: VITAL SIGNS: The patient noted with the following vital signs; afebrile, temperature 98.2, pulse 67, respiratory rate of 16, blood pressure 154/82, and O2 saturations 97%. HEENT: Unremarkable. CARDIOVASCULAR SYSTEM: First and second heart sounds were heard. RESPIRATORY SYSTEM: Clear to auscultation. DIGESTIVE SYSTEM: Revealed a benign abdomen. EXTREMITIES: No peripheral edema. SKIN: No new gross rash. LYMPHATICS: No peripheral lymphadenopathy. LABORATORY INVESTIGATION: Significant for potassium of 3.4. IMPRESSION: 1. Acute kidney injury, which has resolved. 2. Mild hypokalemia. 3. Methicillin sensitive bacteremia . PLAN: 1. Replete potassium. 2. Continue the current renal supportive measures. 3. Antibiotics per Infectious Disease recommendation. Job ID: [id number]
== END 2019-06-07 16:05 | disposition home or self-care (01) | DRG 872 ==
LOC: ERS 12:20 → T4-A 14:11
PROVIDERS: ADMIT Internal Medicine; ATTEND Internal Medicine
PROC: 02HV33Z Insertion of Infusion Device into Superior Vena Cava, Percutaneous Approach (ICD-10-PCS; principal; 2019-06-07)
PROC: B518YZA Fluoroscopy of Superior Vena Cava using Other Contrast, Guidance (ICD-10-PCS; 2019-06-07)
PROC: B548ZZA Ultrasonography of Superior Vena Cava, Guidance (ICD-10-PCS; 2019-06-07)
DX: A41.01 Sepsis due to Methicillin susceptible Staphylococcus aureus (principal); N17.9 Acute kidney failure, unspecified; E87.2 Acidosis; E87.1 Hypo-osmolality and hyponatremia; R65.20 Severe sepsis without septic shock; E86.0 Dehydration; K52.9 Noninfective gastroenteritis and colitis, unspecified; M19.90 Unspecified osteoarthritis, unspecified site; N18.3 Chronic kidney disease, stage 3 (moderate); I08.1 Rheumatic disorders of both mitral and tricuspid valves; Z96.653 Presence of artificial knee joint, bilateral
CPT/HCPCS: 36415; 36569; 70450; 71045; 74176; 80053; 80069; 81003; 81015; 82550; 83605; 84443; 85025; 85610; 86140; 86803; 87040; 87045; 87046; 87077; 87081; 87086; 87149; 87186; 87324; 87389; 87427; 87449; 93005; 93306; 93312; 94760; 96360; 96361; 96365; C1751; J0690; J1650; J2543; J2704; J3370; J3490; J7050